=== PATIENT | female | born 1965 | race Caucasian/White ===

== ENCOUNTER 2016-06-12 08:34 | Emergency (ER) | payer MEDICAID, OTHER ==
[~2016-06-12] VITALS: Ht 157.5 cm; Wt 53.6 kg
[~2016-06-12 08:34] MED LIST: CELE200C PO; CETI10CA PO; CYCL-117 PO; FLUT16SP24 NS; IBUP800T25 PO; NABU-137 PO; TRAZ150T65 PO
[2016-06-12 08:39] VITALS: Ht 157.5 cm; Wt 53.6 kg
[2016-06-12] MEDS ORDERED: LORAZEPAM 2 MG INJ IV ONE (09:30)
[2016-06-12 09:51] LABS: ADD SCAN DIFF NO
[2016-06-12 09:55] LABS: BASOPHILS % 0.5 % (0.0-2.0); EOSINOPHILS # 0.1 10^3/ul (0.0-0.5); EOSINOPHILS % 2.1 % (0.0-7.0); HEMATOCRIT 35.4 % (37.0-47.0); HEMOGLOBIN 12.5 g/dl (12.0-16.0); LYMPHOCYTES # 1.7 10^3/ul (0.8-2.9); LYMPHOCYTES % 29.4 % (15.0-51.0); MEAN CORPUSCULAR HEMOGLOBIN 29.6 pg (29.0-33.0); MEAN CORPUSCULAR HGB CONC 35.3 g/dl (32.0-37.0); MEAN CORPUSCULAR VOLUME 83.9 fl (82.0-101.0); MEAN PLATELET VOLUME 10.7 fl (7.4-10.4); MONOCYTE # 0.5 10^3/ul (0.3-0.9); MONOCYTES % 8.4 % (0.0-11.0); NEUTROPHIL # 3.5 10^3/ul (1.6-7.5); NEUTROPHILS % 59.4 % (39.0-77.0); PLATELET COUNT 230 10^3/UL (140-415); RED BLOOD COUNT 4.22 10^6/ul (4.20-5.40); RED CELL DISTRIBUTION WIDTH 11.9 % (11.5-14.5); WHITE BLOOD COUNT 5.8 10^3/ul (4.8-10.8)
[2016-06-12 10:04] LABS: ALBUMIN 4.8 g/dl (3.3-4.9); ALBUMIN/GLOBULIN RATIO 1.45; BILIRUBIN,INDIRECT 0.4 mg/dl (0-1.1); BILIRUBIN,TOTAL 0.4 mg/dl (0.2-1.3); CREATININE 0.68 mg/dl (0.44-1.00); POTASSIUM 3.5 mmol/L (3.5-5.1); TOTAL PROTEIN 8.1 g/dl (6.1-8.1)
--- NOTE | 2016-06-12 10:14 | RADRPT ---
PROCEDURE: CT facial bones. CLINICAL INDICATION: Sore throat and allergies. TECHNIQUE: A CT of the facial bones was performed on a high-resolution CT scanner utilizing high-r esolution axial images without contrast. Sagittal, coronal, and multiplanar reformatted images were made. Additionally, 3-D reformatted images were made. The CTDIvol is 24 mGy and the DLP is 483 mGy -cm. One or more of the following dose reduction techniques were used: - Automated exposure control. - Adjustment of the mA and/or kV according to patient size. Use of iterative reconstruction technique. COMPARISON: CT scan of the neck to 03/2013. FINDINGS: The osseous structures are intact with no evidence of fracture. The orbits, as visualized, appear i ntact. The overlying soft tissues are grossly unremarkable. The visualized paranasal sinuses are c lear. the brain parenchyma is normal. There is no evidence of hydrocephalous and no intracranial mass is noted. The mastoid air cells and internal pre canals are normal. The pituitary fossa is nor mal in size. The nasal bones and nasal septum are normal. The cavernous sinuses are normal. IMPRESSION: 1. Negative CT scan of the facial bones. RPTAT:AAJJ Physician Nadeem Date Time Electronically viewed and signed by Physician Nadeem on 06/12/2016 10:14 JM/
--- NOTE | 2016-06-12 10:25 | RADRPT ---
PROCEDURE: AP and lateral views of the neck for soft tissue. CLINICAL INDICATION: Pain. TECHNIQUE: AP and lateral views of the cervical spine are performed. COMPARISON: These can cervical spine 03/24/2013. FINDINGS: A cervical fusion was performed from C4-C6 secured with an anterior compression plate and interbody spacers. The small ventral osteophyte off the inferior endplate of C3. There is disk space narrowi ng and ventral spondylosis at C6-7. The ribs and visible lung bragg are normal. There is a left-sided aorta. IMPRESSION: 1. Status post anterior cervical fusion from C4-C6 with interbody spacers. 2. No prevertebral soft tissue swelling or mass is identified. The epiglottis is normal and the ad enoids are normal. RPTAT:AAJJ Physician Nadeem Date Time Electronically viewed and signed by Can Hawkins Physician on 06/12/2016 10:24 BABAR/
--- NOTE | 2016-06-12 10:27 | RADRPT ---
PROCEDURE: XR Chest 1 View. CLINICAL INDICATION: Abnormal breath sounds, abdominal pain TECHNIQUE: AP view of the chest was obtained. COMPARISON: March 23, 2013 FINDINGS: The cardiomediastinal silhouette is within normal limits. Lungs are hyperexpanded. Minimal atelecta sis is noted in the bilateral lower lobes. No consolidations are identified. No pneumothorax is see n. Osseous structures are intact. IMPRESSION: Hyperexpanded lungs. Subsegmental atelectasis in the bilateral lower lobes. RPTAT: AA .Garcia Rangel MD, MD Date Time Electronically viewed and signed by .Garcia Rangel MD, on 06/12/2016 10:27 .P/
[2016-06-12 10:48] LABS: ADD UMIC YES; URINE BILIRUBIN (Dip) NEGATIVE (NEGATIVE); URINE BLOOD (Dip) 3+ (NEGATIVE); URINE COLOR LT. YELLOW (YELLOW); URINE GLUCOSE (Dip) NEGATIVE (NEGATIVE); URINE KETONES (Dip) NEGATIVE (NEGATIVE); URINE LEUKOCYTE ESTERASE (Dip) 1+ (NEGATIVE); URINE NITRITE (Dip) NEGATIVE (NEGATIVE); URINE TOTAL PROTEIN (Dip) NEGATIVE (NEGATIVE); URINE UROBILINOGEN (Dip) 0.2 E.U./dL (0.1-1.0)
[2016-06-12 10:52] VITALS: TEMP 98.3
[2016-06-12] MEDS ORDERED: ALPR0.254 PO (11:56)
[2016-06-12] MEDS ORDERED: PANT20TA3 PO (11:58)
[2016-06-12] MEDS ORDERED: MELO-110 PO (11:58)
[2016-06-12] MEDS ORDERED: TRAM-40 PO (11:58)
[2016-06-12] MEDS ORDERED: FLUO20CA22 PO (11:59)
[2016-06-12] MEDS ORDERED: FLUO20CA38 PO (12:01)
--- NOTE | 2016-06-12 12:18 | ERD ---
ER Documentation Chief Complaint Date/Time DATE: 06/12/16 TIME: 09:00 Chief Complaint DIZZINESS, NUMBNESS, "THROAT CLOSING", STARTING THIS MORNING. HPI 50-year-old female with history of anxiety and chronic neck pain status post cervical fusion ambulatory to the ED with multiple symptoms. This morning after awakening felt lightheaded with tingling to both her hands and numbness around her lips. She feels as though her whole body is weak and heavy and that her throat is closing. No relieving or exacerbating factors. She usually takes Xanax but did not take any this morning. Denies shortness odynophagia, dysphagia, shortness of breath or wheezing. No chest pain or palpitations. She was in her usual state of health until 2 days ago when she developed nonspecific URI symptoms with nasal congestion, nonproductive cough, body aches and subjective fevers. Denies abdominal pain, nausea, vomiting, diarrhea or constipation. Chronic, mild, crampy, posterior neck pain which is unchanged. No headache, visual changes, focal weakness or numbness. No dysuria, polyuria, hematuria or flank pain. Denies depression, suicidal or homicidal ideations. No new stressors. ROS All systems reviewed and are negative except as per history of present illness. Medications Home Meds Reported Medications Fluoxetine Hcl* (Prozac*) 20 Mg Capsule, 20 MG PO DAILY, CAP 06/12/16 Pantoprazole* (Pantoprazole*) 20 Mg Tablet.dr, 20 MG PO DAILY, TAB 06/12/16 Meloxicam* (Mobic*) 15 Mg Tablet, 15 MG PO DAILY, #30 TAB 06/12/16 Tramadol Hcl* (Ultram*) 50 Mg Tablet, 50 MG PO BID Y for PAIN, TAB 06/12/16 Alprazolam* (Alprazolam*) 0.25 Mg Tablet, 0.25 MG PO Q8 Y for ANXIETY, TAB 06/12/16 Discontinued Reported Medications Fluoxetine Hcl* (Fluoxetine Hcl*) 20 Mg Capsule, 20 MG PO DAILY, CAP 06/12/16 Celecoxib* (Celebrex*) 200 Mg Capsule, 200 MG PO TID Y 02/05/13 Trazodone Hcl* (Trazodone Hcl*) 150 Mg Tablet, 150 MG PO DAILY Y 02/05/13 Fluticasone Propionate* (Flonase* Nasal) 16 Gm [place].susp, 16 GM NS DAILY 02/05/13 Cyclobenzaprine Hcl (Flexeril) 10 Mg Tablet, 10 MG PO BID Y 02/05/13 Nabumetone* (Relafen*) 750 Mg Tablet, 750 MG PO BID Y 02/05/13 Cetirizine Hcl* (Zyrtec*) 10 Mg Capsule, 10 MG PO DAILY Y 02/05/13 Ibuprofen* (Ibuprofen*) 800 Mg Tablet, 800 MG PO Q8 Y 02/05/13 Allergies Allergies: Coded Allergies: morphine (Verified Allergy, Unknown, 06/12/16) PMhx/Soc Reviewed in chart. As per HPI. History of Surgery: Yes (CERVICAL FUSION) Anesthesia Reaction: No Hx Neurological Disorder: No Hx Respiratory Disorders: No Hx Cardiac Disorders: No Hx Psychiatric Problems: Yes (anxiety) Hx Miscellaneous Medical Probl: No Hx Alcohol Use: Yes (ocassional) Hx Substance Use: No Hx Tobacco Use: No Smoking Status: Never smoker FmHx Not relevant to presenting complaint Physical Exam Vitals Vital Signs Date Time Temp Pulse Resp B/P Pulse Ox O2 Delivery O2 Flow Rate FiO2 06/12/16 10:52 98.3 77 18 124/81 99 Room Air 06/12/16 08:39 98.6 87 20 155/95 100 Physical Exam Const: Alert, anxious in moderate distress. Head: Atraumatic Eyes: Normal Conjunctiva. No chemosis. Sclera anicteric. No nystagmus. ENT: Normal External Ears, Nose and Mouth. Pharynx is clear without erythema or exudate. No periorbital, tongue or uvular swelling. No trismus. No drooling. Neck: Nontender. No lymphadenopathy. No stridor. No meningismus. Resp: Breath sounds are equal and clear to auscultation bilaterally. No rales rhonchi or wheezes. Cardio: Regular rate and rhythm, no murmurs Abd: Soft, non tender, non distended. Normal bowel sounds. No rebound or guarding. Skin: No petechiae or rashes. No your urticaria. Back: No midline or flank tenderness Ext: No cyanosis, or edema Neur: Awake and alert. No focal deficit observed. Motor and sensory equal bilaterally Psych: Patient appears anxious but not depressed. Result Diagram: 06/12/16 0930 06/12/16 0930 Results 24 hrs Laboratory Tests Test 06/12/16 09:30 06/12/16 10:30 White Blood Count 5.810^3/ul Red Blood Count 4.2210^6/ul Hemoglobin 12.5g/dl Hematocrit 35.4% Mean Corpuscular Volume 83.9fl Mean Corpuscular Hemoglobin 29.6pg Mean Corpuscular Hemoglobin Concent 35.3g/dl Red Cell Distribution Width 11.9% Platelet Count 51154^3/UL Mean Platelet Volume 10.7fl Neutrophils % 59.4% Lymphocytes % 29.4% Monocytes % 8.4% Eosinophils % 2.1% Basophils % 0.5% Nucleated Red Blood Cells % 0.0/100WBC Neutrophils # 3.510^3/ul Lymphocytes # 1.710^3/ul Monocytes # 0.510^3/ul Eosinophils # 0.110^3/ul Basophils # 0.010^3/ul Nucleated Red Blood Cells # 0.010^3/ul Sodium Level 139mmol/L Potassium Level 3.5mmol/L Chloride Level 105mmol/L Carbon Dioxide Level 26mmol/L Anion Gap 12 Blood Urea Nitrogen 13mg/dl Creatinine 0.68mg/dl Glucose Level 116mg/dl Calcium Level 10.0mg/dl Total Bilirubin 0.4mg/dl Direct Bilirubin 0.00mg/dl Indirect Bilirubin 0.4mg/dl Aspartate Amino Transf (AST/SGOT) 26IU/L Alanine Aminotransferase (ALT/SGPT) 21IU/L Alkaline Phosphatase 82IU/L Total Protein 8.1g/dl Albumin 4.8g/dl Globulin 3.30g/dl Albumin/Globulin Ratio 1.45 Monoscreen Negative Urine Color LT. YELLOW Urine Clarity CLEAR Urine pH 8.5 Urine Specific [place] 1.015 Urine Ketones NEGATIVE Urine Nitrite NEGATIVE Urine Bilirubin NEGATIVE Urine Urobilinogen 0.2 E.U./dL Urine Leukocyte Esterase 1+ Urine Microscopic RBC 5-10/HPF Urine Microscopic WBC 2-5/HPF Urine Epithelial Cells RARE Urine Hemoglobin 3+ Urine Glucose NEGATIVE% Urine Total Protein NEGATIVE Current Medications Medications (Trade) Dose Ordered Sig/Harry Route PRN Reason Start Time Stop Time Status Last Admin Dose Admin Lorazepam (Ativan) 1 mg ONCE ONCE IV 06/12/16 09:30 06/12/16 09:31 DC 06/12/16 09:31 Procedures/MDM DOCUMENTS REVIEWED: ED nurse, prior ED, prior records ED COURSE: Ativan 1 mg IV. Normal saline 1 L. REEXAMINATION/REEVALUATION: Time:10:50. Sleepy but easily arousable. Symptoms resolved completely. MEDICAL DECISION MAKIN-year-old female with history of anxiety and chronic neck pain status post cervical fusion ambulatory to the ED with multiple symptoms. This morning after awakening felt lightheaded with tingling to both her hands and numbness around her lips. Presentation consistent with anxiety reaction. No depression, hallucinations, suicidality or homicidality. Symptoms resolved completely with Ativan. She complains of feelings of throat tightness but there is no evidence of laryngeal spasm, angioedema, pharyngitis or liquids angina. No epiglottitis or parapharyngeal abscess. As per her PMD, 's request CBC, chemistry, CT of the sinuses and Monospot are all negative. No radiographic evidence of pneumonia. No wheezing or bronchospasm. Nonspecific syndrome suggestive of viral illness which seems to be improving. Patient observed in the ED for over 3 hours multiple examinations were performed. Asymptomatic and feels well to go home. Stable for discharge with precautionary instructions and outpatient follow-up as counseled. Counseled patient and family regarding diagnostic workup, diagnosis and need for followup. Understands to return to ED if symptoms recur, worsen or any other concerns. CALLS/CONSULTS: Time 09:40, Dr. Tabor, request Monospot and CT of the orbits be performed. Departure Diagnosis: Primary Impression: Acute anxiety Additional Impressions: Chronic pain Chronic pain type: other chronic pain Qualified Code: G89.29 - Other chronic pain Nonspecific syndrome suggestive of viral illness Dizziness Condition: Stable ZACKARY ROSEN MD Jun 12, 2016 12:18
[2016-06-12 14:15] VITALS: BP 122/85; PULSE 78; RESP 18
== END 2016-06-12 14:16 | disposition home or self-care (01) ==
LOC: E/R 08:34
DX: F41.9 Anxiety disorder, unspecified (principal); G89.29 Other chronic pain; R40.2252 Coma scale, best verbal response, oriented, at arrival to emergency department; R40.2142 Coma scale, eyes open, spontaneous, at arrival to emergency department; R40.2362 Coma scale, best motor response, obeys commands, at arrival to emergency department
CPT/HCPCS: 70360; 70486; 71010; 80053; 81001; 85025; 86308; 96374; J2060; Z7502; Z7610; 81003

== ENCOUNTER 2016-08-12 10:12 | Emergency (ER) | payer OTHER ==
[~2016-08-12] VITALS: Ht 154.9 cm; Wt 54.5 kg
[~2016-08-12 10:12] MED LIST changes: +ALPR0.254 PO; -CELE200C PO; -CETI10CA PO; -CYCL-117 PO; +FLUO20CA38 PO; -FLUT16SP24 NS; -IBUP800T25 PO; +MELO-110 PO; -NABU-137 PO; +PANT20TA3 PO; +TRAM-40 PO; -TRAZ150T65 PO
[2016-08-12 10:14] VITALS: Ht 154.9 cm; Wt 54.5 kg
[2016-08-12] MEDS ORDERED: IBUP-1542 PO (10:29)
[2016-08-12] MEDS ORDERED: IBUPROFEN 800 MG TAB PO ONE (10:30)
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
== END 2016-08-12 10:52 | disposition home or self-care (01) ==
LOC: E/R 10:12
DX: S19.9XXA Unspecified injury of neck, initial encounter (principal); Y08.89XA Assault by other specified means, initial encounter
CPT/HCPCS: 99283

== ENCOUNTER 2016-08-24 17:00 | Emergency (ER) | payer OTHER ==
[~2016-08-24] VITALS: Ht 157.5 cm; Wt 78.0 kg
[~2016-08-24 17:00] MED LIST changes: +IBUP-1542 PO
[2016-08-24 17:06] VITALS: Ht 157.5 cm; Wt 78.0 kg
[2016-08-24] MEDS ORDERED: LIDOCAINE 2% (MDV) 20 ML INJ INJ ONE (18:30)
[2016-08-24] MEDS ORDERED: DIPHTH/TET/ACEL PERTUSS (ADULT) 0.5 ML VIAL IM* ONE (20:00)
--- NOTE | 2016-08-24 20:12 | RADRPT ---
PROCEDURE: XR Right Hand CLINICAL INDICATION: Fourth digit pain TECHNIQUE: PA, oblique, and lateral radiographs were submitted. COMPARISON: None FINDINGS: Osseous structures: appear well mineralized and intact with no fracture or destructive process iden tified. Joint spaces: are well maintained, with no significant spurring, erosion or joint effusion evident. Soft tissues: appear unremarkable. IMPRESSION: Unremarkable right hand. Physician Ro Date Time Electronically viewed and signed by Shilpa Alamo Physician on 08/24/2016 20:12 /
[2016-08-24] MEDS ORDERED: IBUP-1542 PO (20:15)
[2016-08-24] MEDS ORDERED: CLIN-73 PO (20:15)
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
== END 2016-08-24 20:20 | disposition home or self-care (01) ==
LOC: FTE 17:00
DX: M79.644 Pain in right finger(s) (principal); Z23 Encounter for immunization
CPT/HCPCS: 10060; 73130; 90471; 90715; Z7502; Z7610

== ENCOUNTER 2016-09-10 21:31 | Emergency (ER) | payer OTHER ==
[~2016-09-10] VITALS: Ht 154.9 cm; Wt 58.0 kg
[~2016-09-10 21:31] MED LIST changes: +CLIN-73 PO
[2016-09-10 21:38] VITALS: Ht 154.9 cm; Wt 58.0 kg
[2016-09-10] MEDS ORDERED: LIDOCAINE 2% (MDV) 20 ML INJ INJ ONE (23:00)
[2016-09-10] MEDS ORDERED: MUPI22OI2 TOP (23:51)
[2016-09-11] MEDS ORDERED: BACITRACIN 0.9 GM OINT TOP ONE
[2016-09-11 00:06] VITALS: BP 118/79; PULSE 78; RESP 20; TEMP 98.5
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
== END 2016-09-11 00:06 | disposition home or self-care (01) ==
LOC: FTE 21:31
DX: L84 Corns and callosities (principal)
CPT/HCPCS: Z7502; Z7610; 99283